=== PATIENT | male | born 1955 | race Caucasian/White ===

== ENCOUNTER 2025-04-20 09:53 | Outpatient (CLI) | payer OTHER | END 2025-04-20 09:54 | disposition home or self-care (01) | LOC: CSHMRI 09:53 | PROVIDERS: ATTEND Orthopaedic Surgery | DX: M75.121 Complete rotator cuff tear or rupture of right shoulder, not specified as traumatic (principal); M24.811 Other specific joint derangements of right shoulder, not elsewhere classified; M62.511 Muscle wasting and atrophy, not elsewhere classified, right shoulder; S46.211A Strain of muscle, fascia and tendon of other parts of biceps, right arm, initial encounter; S43.431A Superior glenoid labrum lesion of right shoulder, initial encounter ==